=== PATIENT | male | born 1960 | race Two or more races ===

== ENCOUNTER 2022-08-16 22:21 | Emergency (ER) | payer BC, OTHER ==
[~2022-08-16] VITALS: Ht 200.7 cm; Wt 122.9 kg
--- NOTE | 2022-08-16 23:10 | NUR ---
c/o sob and chest tightness x today, Hx asthma 97% on room air.Pt AAO x 4,breathing unlabored, stable on room air. Pt attached to monitor and pox. Awaiting to be seen by
[2022-08-16] MEDS ORDERED: ALBU18HF2 INH (23:26)
[2022-08-16] MEDS ORDERED: PRED50TA PO (23:26)
[2022-08-16] MEDS ORDERED: predniSONE 50 MG TABLET PO ONE (23:30)
[2022-08-16] MEDS ORDERED: predniSONE 20 MG TABLET ONE (23:31)
--- NOTE | 2022-08-16 23:54 | NUR ---
Patient discharged to home in stable condition. Written and verbal after care instructions given. Patient verbalizes understanding of instruction.Pt ambulatory with a steady gait
[2022-08-16 23:55] VITALS: BP 133/82
== END 2022-08-16 23:55 | disposition home or self-care (01) ==
LOC: ER 22:28
DX: J45.901 Unspecified asthma with (acute) exacerbation (principal); Z98.890 Other specified postprocedural states; Z79.899 Other long term (current) drug therapy
CPT/HCPCS: 99283; J7512